=== PATIENT | male | born 1960 | race Caucasian/White ===

== ENCOUNTER 2016-12-22 14:08 | Emergency (ER) | payer OTHER ==
[2016-12-22] MEDS ORDERED: Sodium Chloride 0.9% 10 ML Syringe FLUSH PRN (14:12)
--- NOTE | 2016-12-22 14:20 | EDM.PDOC ---
ED HPI NEURO - General Chief Complaint: Neuro Symptoms/Deficits Stated Complaint: [facility] Time Seen by Provider: 12/22/16 14:12 Source of Information: Reports: Patient, EMS, Family, Police History Limitations: Reports: Altered mental status - History of Present Illness INITIAL COMMENTS - FREE TEXT/NARRATIVE: The patient was at [employer] eating lunch. He could not talk and was scratching his left arm. He then went into a generalized tonic clonic seizure for about 1 minute. He was post ictal when police and EMS arrived. He was combative and they gave him 2 mgs of atomized ativan and a total of 4 more ativan. He needed to be handcuffed on the way for his safety and EMS safety. He has a history of lung cancer and MT with stents. He is on plavix. He is confused when he arrived. He has never had a history of seizure or stroke. Timing/Duration: Reports: Minutes: Location (Neuro Complaint): Reports: generalized, other (Confused) Severity: moderate Improves with: Reports: None Worsens with: Reports: None Context, General: Reports: Other (Eating when it happened) Associated Symptoms: Reports: confusion - Related Data Allergies/ADRs: Allergies Allergy/AdvReac Type Severity Reaction Status Date / Time No Known Allergies Allergy Verified 02/24/14 07:04 CDT Home Meds: Home Meds Aspirin [Children's Aspirin] 81 mg PO DAILY 02/23/14 [History] Furosemide [Lasix] 40 mg PO DAILY 02/23/14 [History] Levothyroxine 125 mcg PO [facility] 02/23/14 [History] Metoprolol Succinate [Toprol XL] 25 mg PO [facility] 02/23/14 [History] Ramipril [Altace] 10 mg PO [facility] 02/23/14 [History] atorvaSTATin [Lipitor] 80 mg PO BEDTIME 02/23/14 [History] Diazepam [Valium] 5 mg PO ASDIRECTED PRN 04/03/15 [History] Past Medical History - Past Surgical History Other Respiratory Surgeries/Procedures: hx wedge resection of lung Social & Family History - Tobacco Use Smoking Status *Q: Former Smoker (quit '09) Used Tobacco, but Quit: Yes - Alcohol Use Days Per Week of Alcohol Use: 0 Number of Drinks Per Day: 0 Total Drinks Per Week: 0 - Recreational Drug Use Recreational Drug Use: No Drug Use in Last 12 Months: No ED ROS GENERAL - Review of Systems Review Of Systems: See Below Constitutional: Reports: no symptoms HEENT: Reports: No symptoms Respiratory: Reports: No Symptoms Cardiovascular: Reports: No symptoms Endocrine: Reports: no symptoms GI/Abdominal: Reports: No symptoms : Reports: no symptoms Musculoskeletal: Reports: no symptoms Skin: Reports: no symptoms Neurological: Reports: Confusion, Seizure ED EXAM, NEURO - Physical Exam Exam: See Below Exam Limited By: Altered mental status General Appearance: alert, no apparent distress Ears: normal external exam Nose: normal inspection Head Exam: atraumatic, normocephalic Neck: normal inspection Respiratory/Chest: no respiratory distress, lungs clear, normal breath sounds Cardiovascular: regular rate, rhythm, no edema, no murmur GI/Abdominal: soft, non tender, no organomegaly, no mass Neurological: alert, no motor/sensory deficits, other (He is confused. He is talking but he will not answer any questions. He says he needs to urinate.) Extremities: normal inspection Skin Exam: Warm, Dry EKG INTERPRETATION EKG Date: 12/22/16 Time: 14:14 Rhythm: other (Sinus tachycardia) Rate (beats/min): 113 [place]: normal P-wave: present QRS: normal ST-T: normal QT: normal Course - Vital Signs Last Recorded V/S: Last Vital Signs Temp 98.3 F 12/22/16 14:33 Pulse 112 H 12/22/16 14:12 Resp 33 H 12/22/16 14:12 BP 120/81 12/22/16 14:12 Pulse Ox 93 L 12/22/16 14:34 - Orders/Labs/Meds Orders: Active Orders 24 hr Category Date Time Status Cardiac Monitoring [RC] . DIRECTED Care 12/22/16 14:12 Active EKG Documentation Completion [RC] STAT Care 12/22/16 14:13 Active Oxygen Therapy [RC] PRN Care 12/22/16 14:12 Active Peripheral IV Care [RC] . DIRECTED Care 12/22/16 14:13 Active Sodium Chloride 0.9% [Saline Flush] Med 12/22/16 14:12 Active 10 ml FLUSH ASDIRECTED PRN Peripheral IV Insertion Adult [OM.PC] Stat Oth 12/22/16 14:12 Ordered Medication Orders Sodium Chloride (Saline Flush) 10 ml FLUSH ASDIRECTED PRN PRN Reason: Keep Vein Open Last Admin: 12/22/16 14:44 Dose: 10 ml Labs: Laboratory Tests 12/22/16 12/22/16 12/22/16 Range/Units 14:20 15:00 15:00 WBC 6.68 (4.23-9.07) K/mm3 RBC 4.42 L (4.63-6.08) M/mm3 Hgb 12.9 L (13.7-17.5) gm/L Hct 39.4 L (40.1-51.0) % MCV 89.1 (79.0-92.2) fl MCH 29.2 (25.7-32.2) pg MCHC 32.7 (32.2-35.5) g/dl RDW Std Deviation 43.7 (35.1-43.9) fL Plt Count 156 L (163-337) K/mm3 MPV 10.4 (9.4-12.3) fl Neut % (Auto) 81.2 H (34.0-67.9) % Lymph % (Auto) 7.9 L (21.8-53.1) % Guthrie % (Auto) 9.7 (5.3-12.2) % Eos % (Auto) 0.6 L (0.8-7.0) Baso % (Auto) 0.3 (0.1-1.2) % Neut # (Auto) 5.42 H (1.78-5.38) K/mm3 Lymph # (Auto) 0.53 L (1.32-3.57) K/mm3 Guthrie # (Auto) 0.65 (0.30-0.82) K/mm3 Eos # (Auto) 0.04 (0.04-0.54) K/mm3 Baso # (Auto) 0.02 (0.01-0.08) K/mm3 Manual Slide Review Abnormal smear PT 10.8 (8.0-13.0) SECONDS INR 0.99 APTT 24 (22-36) SECONDS Sodium (136-145) mEq/L Potassium (3.5-5.1) mEq/L Chloride (98-107) mEq/L Carbon Dioxide (21-32) mEq/L Anion Gap (5-15) BUN (7-18) mg/dL Creatinine (0.7-1.3) mg/dL Est Cr Clr Drug Dosing mL/min Estimated GFR (MDRD) (>60) mL/min BUN/Creatinine Ratio (14-18) Glucose (74-106) mg/dL Calcium (8.5-10.1) mg/dL Total Bilirubin (0.2-1.0) mg/dL AST (15-37) U/L ALT (16-63) U/L Alkaline Phosphatase (46-116) U/L Troponin I (0.00-0.056) ng/mL Total Protein (6.4-8.2) g/dl Albumin (3.4-5.0) g/dl Globulin gm/dL Albumin/Globulin Ratio (1-2) Urine Opiates Screen Negative (NEGATIVE) Ur Buprenorphine Scrn Negative (NEGATIVE) Ur Oxycodone Screen Negative (NEGATIVE) Urine Methadone Screen Negative (NEGATIVE) Ur Propoxyphene Screen Negative (NEGATIVE) Ur Barbiturates Screen Negative (NEGATIVE) Ur Tricyclics Screen Negative (NEGATIVE) Ur Phencyclidine Scrn Negative (NEGATIVE) Ur Amphetamine Screen Negative (NEGATIVE) U Methamphetamines Scrn Negative (NEGATIVE) U Benzodiazepines Scrn Negative (NEGATIVE) U Cocaine Metab Screen Negative (NEGATIVE) U Marijuana (THC) Screen Presumptive positive H (NEGATIVE) Ethyl Alcohol (0.00) gm% 12/22/16 Range/Units 15:00 WBC (4.23-9.07) K/mm3 RBC (4.63-6.08) M/mm3 Hgb (13.7-17.5) gm/L Hct (40.1-51.0) % MCV (79.0-92.2) fl MCH (25.7-32.2) pg MCHC (32.2-35.5) g/dl RDW Std Deviation (35.1-43.9) fL Plt Count (163-337) K/mm3 MPV (9.4-12.3) fl Neut % (Auto) (34.0-67.9) % Lymph % (Auto) (21.8-53.1) % Guthrie % (Auto) (5.3-12.2) % Eos % (Auto) (0.8-7.0) Baso % (Auto) (0.1-1.2) % Neut # (Auto) (1.78-5.38) K/mm3 Lymph # (Auto) (1.32-3.57) K/mm3 Guthrie # (Auto) (0.30-0.82) K/mm3 Eos # (Auto) (0.04-0.54) K/mm3 Baso # (Auto) (0.01-0.08) K/mm3 Manual Slide Review PT (8.0-13.0) SECONDS INR APTT (22-36) SECONDS Sodium 141 (136-145) mEq/L Potassium 3.6 (3.5-5.1) mEq/L Chloride 103 (98-107) mEq/L Carbon Dioxide 24 (21-32) mEq/L Anion Gap 17.6 H (5-15) BUN 13 (7-18) mg/dL Creatinine 1.2 (0.7-1.3) mg/dL Est Cr Clr Drug Dosing 73.65 mL/min Estimated GFR (MDRD) > 60 (>60) mL/min BUN/Creatinine Ratio 10.8 L (14-18) Glucose 122 H (74-106) mg/dL Calcium 9.1 (8.5-10.1) mg/dL Total Bilirubin 0.4 (0.2-1.0) mg/dL AST 20 (15-37) U/L ALT 27 (16-63) U/L Alkaline Phosphatase 104 (46-116) U/L Troponin I < 0.017 (0.00-0.056) ng/mL Total Protein 7.4 (6.4-8.2) g/dl Albumin 3.7 (3.4-5.0) g/dl Globulin 3.7 gm/dL Albumin/Globulin Ratio 1.0 (1-2) Urine Opiates Screen (NEGATIVE) Ur Buprenorphine Scrn (NEGATIVE) Ur Oxycodone Screen (NEGATIVE) Urine Methadone Screen (NEGATIVE) Ur Propoxyphene Screen (NEGATIVE) Ur Barbiturates Screen (NEGATIVE) Ur Tricyclics Screen (NEGATIVE) Ur Phencyclidine Scrn (NEGATIVE) Ur Amphetamine Screen (NEGATIVE) U Methamphetamines Scrn (NEGATIVE) U Benzodiazepines Scrn (NEGATIVE) U Cocaine Metab Screen (NEGATIVE) U Marijuana (THC) Screen (NEGATIVE) Ethyl Alcohol 0.00 (0.00) gm% Meds: Medications Generic Name Dose Route Start Last Admin Trade Name Freq PRN Reason Stop Dose Admin Sodium Chloride 10 ml 12/22/16 14:12 12/22/16 14:44 Saline Flush FLUSH 10 ml ASDIRECTED PRN Administration Keep Vein Open Discontinued Medications Generic Name Dose Route Start Last Admin Trade Name Eyad PRN Reason Stop Dose Admin Gadobenate Dimeglumine 20 ml 12/22/16 15:29 Multihance IVPUSH 12/22/16 15:30 ONETIME ONE Midazolam HCl Confirm 12/22/16 14:22 12/22/16 14:44 Versed 1 Mg/Ml Administered 12/22/16 14:23 Not Given Dose 6 mg .ROUTE .STK-MED ONE Midazolam HCl 4 mg 12/22/16 14:42 12/22/16 14:25 Versed 1 Mg/Ml IVPUSH 12/22/16 14:43 4 mg ONETIME ONE Administration Midazolam HCl 2 mg 12/22/16 15:10 12/22/16 15:15 Versed 1 Mg/Ml IVPUSH 12/22/16 15:11 2 mg ONETIME ONE Administration Midazolam HCl Confirm 12/22/16 15:13 12/22/16 15:21 Versed 1 Mg/Ml Administered 12/22/16 15:14 Not Given Dose 2 mg .ROUTE .STK-MED ONE Midazolam HCl 2 mg 12/22/16 16:02 12/22/16 16:05 Versed 1 Mg/Ml IVPUSH 12/22/16 16:03 2 mg ONETIME ONE Administration - Re-Assessments/Exams Free Text/Narrative Re-Assessment/Exam: 12/22/16 14:45 A stroke alert was called. The patient was alert and talking but he was confused. He was more calm now after a total of 6mg of ativan. I ordered a CT of his head and labs. He would not lay down for CT so I gave him versed 5mg IV. 12/22/16 15:[address] shows slightly prominent size of the left cavernous sinus. This may be normal variant but MRI recommended to further evaluate which should include post gadolinium images to confirm. I have ordered an MRI of the brain with and without gadolinium. He is more orientated now. 12/22/16 16:46 His CBC looks good. His CMP looks good. His troponin was negative. His PT was normal at 10.8. His INR was normal at 0.99. His ETOH was negative. His UDS was presumptive positive for marijuana. His MRI shows 2 adjacent small abnormalities within the left cerebellar hemisphere. These show increasing artifact on the diffusion sequence and most likely represent small areas of old hemorrhage. Cavernous sinuses appear within normal limits on this exam. No additional abnormality is appreciated on MRI study of the brain. Details are somewhat limited due to motion. He had a hard time in the MRI machine. I ordered a total of 4mg of versed to help him but he had enough and got out of the MRI. 12/22/16 17:[address] Cifuentes the neurologist drill press operator numerical control at [facility]. He would like the patient to be on an antiepileptic. The patient did not want to be on anything. He was on something 10 years ago and it messed with his mind. He would like to see the neurologist first. Dr Cifuentes understood. He does not want the patient to drive until he is cleared by a neurologist. The patient's chest x- ray shows a density within the right mid chest that could be pneumonia. The patient has no symptoms of cough or fever. This could be scar tissue from his prior surgery and radiation. I will discharge the patient to home and follow up with Dr Cifuentes and his doctor. Departure - Departure Time of Disposition: 17:45 Disposition: Home, Self-Care 01 Condition: good Clinical Impression: Seizure Referrals: Lacho Cifuentes MD [Physician] - 1 Week Forms: ED Department Discharge Additional Instructions: Follow up with your doctor as scheduled. Call [facility] tomorrow and make an appointment to see Dr Cifuentes the neurologist at [facility] or one of his partners. Please return if you are worse. Do not drive until you are cleared by a neurologist. Take your medication as prescribed. - My Orders Last 24 Hours: My Active Orders 12/22/16 14:12 Cardiac Monitoring [RC] . DIRECTED Oxygen Therapy [RC] PRN Sodium Chloride 0.9% [Saline Flush] 10 ml FLUSH ASDIRECTED PRN Peripheral IV Insertion Adult [OM.PC] Stat 12/22/16 14:13 EKG Documentation Completion [RC] STAT Peripheral IV Care [RC] . DIRECTED - Assessment/Plan Last 24 Hours: My Active Orders 12/22/16 14:12 Cardiac Monitoring [RC] . DIRECTED Oxygen Therapy [RC] PRN Sodium Chloride 0.9% [Saline Flush] 10 ml FLUSH ASDIRECTED PRN Peripheral IV Insertion Adult [OM.PC] Stat 12/22/16 14:13 EKG Documentation Completion [RC] STAT Peripheral IV Care [RC] . DIRECTED
[2016-12-22] MEDS ORDERED: Midazolam 1 MG/ML 2 ML SDV ONE ×2 (14:22→15:13)
[2016-12-22 14:26] VITALS: BP 120/81
[2016-12-22] MEDS ORDERED: Midazolam 1 MG/ML 2 ML SDV IVPUSH ONE ×3 (14:42→16:02)
--- NOTE | 2016-12-22 14:45 | CT ---
Head CT Technique: Multiple axial sections through the brain were obtained. Intravenous contrast was not utilized. Comparison: No previous intracranial imaging. Findings: Ventricles along with basal cisterns and sulci over the convexities are within normal limits for the patient's age. Slightly prominent left side of the cavernous sinus is seen as compared to the right side. No abnormal parenchymal densities are otherwise seen. No evidence of intracranial hemorrhage. No midline shift or mass effect is seen. Bone window settings were reviewed which shows no discrete calvarial abnormality. Visualized sinuses are clear. Impression: 1. Slightly prominent size of the left cavernous sinus. This may be normal variant but MRI recommended to further evaluate which should include post gadolinium images to confirm. 2. Other portions of the noncontrast head CT study are unremarkable. Diagnostic code #9
--- NOTE | 2016-12-22 15:08 | CR ---
Chest: Portable view of the chest was obtained. Comparison: No previous study. Focal density noted within the right mid chest. Please correlate if patient has any infectious symptoms for this to represent an area of pneumonia. Central lung markings are also increased most likely chronic but difficult to exclude bronchitis. Heart size is normal. Tortuous thoracic aorta is seen. Impression: 1. Density within the right mid chest. Please correlate if patient has any symptoms for this to represent pneumonia. 2. Increased central lung markings as noted above. Diagnostic code #3
[2016-12-22] MEDS ORDERED: Gadobenate Dimeglumine 529 MG/ML 20 ML SDV IVPUSH ONE (15:29)
--- NOTE | 2016-12-22 16:38 | MR ---
MRI brain Technique: Diffusion, T2, T2 FLAIR and T1 axial; T1 FLAIR coronal Comparison: Prior head CT study of 12/22/16. Findings: 2 small adjacent abnormalities are seen within the left cerebellar hemisphere. This shows increased artifact on the diffusion sequence and most likely represents a small old area of hemorrhage. Significant motion artifact is seen. Normal signal void seen within the major cerebral arteries within the skull base. Cavernous sinuses appear within normal limits on this exam and previous head CT finding is likely due to patient rotation. No other abnormal areas of signal are seen within the brain parenchyma. No midline shift or mass effect is seen. Impression: 1. 2 adjacent small abnormalities within the left cerebellar hemisphere. These show increasing artifact on the diffusion sequence and most likely represent small areas of old hemorrhage. 2. Cavernous sinuses appear within normal limits on this exam. 3. No additional abnormality is appreciated on MRI study of the brain. Details are somewhat limited due to motion. Diagnostic code #2
== END 2016-12-22 18:07 | disposition home or self-care (01) ==
LOC: JD.ED 14:08
DX: G40.909 Epilepsy, unspecified, not intractable, without status epilepticus (principal); Z79.82 Long term (current) use of aspirin; Z79.899 Other long term (current) drug therapy; Z85.118 Personal history of other malignant neoplasm of bronchus and lung; I25.2 Old myocardial infarction; Z95.5 Presence of coronary angioplasty implant and graft; Z87.891 Personal history of nicotine dependence; Z79.02 Long term (current) use of antithrombotics/antiplatelets
CPT/HCPCS: 36415; 70450; 70551; 71010; 80053; 80306; 84484; 85025; 85610; 85730; 93005; 96374; 96376; 99285; G0480; J2250; J7050